=== PATIENT | male | born 1980 ===

== ENCOUNTER 2023-09-21 07:40 | Emergency (ER) | payer OTHER, SELFPAY ==
[2023-09-21] VITALS (30 sets, daily range): BP systolic 87–136; BP diastolic 50–75; PULSE 50–69; RESP 10–27; TEMP 33.8–36.2; O2SAT 89–100; BMI 30.8
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
--- NOTE | 2023-09-21 07:39 | DI.CT.S_ITS ---
This report includes an Addendum and supersedes previous reports for this exam. PROCEDURE: CT CHEST ABD PEL W CON INDICATIONS: Trauma TECHNIQUE: After the administration of intravenous contrast, 5 mm thick sections acquired from the lung apices to the symphysis. 2.5 mm thick coronal and sagittal reformats were acquired. Additional 7 mm thick coronal maximum intensity projection (MIP) reformats acquired through the lungs. Optional 10-minute delayed imaging may be performed from the kidneys to the bladder. For radiation dose reduction, the following was used: automated exposure control, adjustment of mA and/or kV according to patient size. COMPARISON: None. FINDINGS: Image quality: Good. CHEST: Lungs: Trace left pneumothorax. No right pneumothorax. Trace left hemothorax. Trace secretions in the trachea. Bilateral dependent ground-glass opacity which has the appearance of atelectasis. Mediastinum: No mediastinal hematomas. Heart size is normal. No pericardial effusion. Thoracic aorta and pulmonary arteries demonstrate normal size and enhancement. No mediastinal or hilar adenopathy. Esophagus is normal in caliber. No hiatal hernia. Chest wall: Left 1-5th rib fractures. Minimal displacement. Right 1st rib fracture. No sternal fracture. Trace left subcutaneous emphysema. No large hematoma. No axillary or supraclavicular adenopathy. Thyroid gland is unremarkable. ABDOMEN: Solid organs: Liver is normal in size. No liver laceration is identified. There is trace hemorrhage adjacent to the inferior margin of the right lobe of the liver, (). Gallbladder is unremarkable. Biliary system is non-dilated. Pancreas enhances normally, without transection. Spleen is normal in size and enhancement, without lacerations. Right adrenal nodule or hemorrhage measuring 2.4 cm, (64), 75 Hounsfield units. Minimal thickening of the left adrenal gland. Right kidney subcapsular hematoma measuring 8.1 cm in length and 2.5 cm in thickness, (/43). There is mass effect on the renal parenchyma. Possible renal laceration at the superior pole the right kidney. No hydronephrosis. A few small low-density renal cysts bilaterally. Peritoneum and bowel: No gross pneumoperitoneum. Fat stranding adjacent to the distal descending colon/sigmoid colon in the left lower quadrant, (104). Suspected contusion with surrounding hemorrhage. Diverticulosis. No small bowel obstruction. The appendix is normal. Nodes and vessels: No retroperitoneal or mesenteric adenopathy. Aorta and inferior vena cava are normal in size and enhancement. Miscellaneous: Tiny umbilical hernia. PELVIS: Genitourinary: Bladder is unremarkable. No fluid surrounding the bladder. No stone. Miscellaneous: No adenopathy. Possible fat containing left inguinal hernia. Bones: Questionable lucency at the left acetabulum, (15/159), which could represent nondisplaced fracture. Bilateral L4 pars defect with anterolisthesis of L4 on L5 measuring 0.8 cm. No paraspinal hematoma. Suspect chronic etiology. No acute spinal fracture identified. IMPRESSION: 1. Trace left pneumothorax and hemothorax. Left 1-5th rib fractures. Minimal to mild displacement. Suspect right 1st rib fracture. 2. No mediastinal hematoma. No aortic dissection. 3. Right kidney subcapsular hematoma measuring 8.1 cm. Concern for renal laceration at the superior pole the right kidney. 4. Trace hematoma at the right pericolic gutter adjacent to the liver. 5. Small hematoma/contusion at the left lower quadrant distal descending colon. No pneumoperitoneum. 6. Bilateral L4 pars defect with grade 1 anterolisthesis of L4 on L5. Suspect chronic etiology rather than acute fracture. No paraspinal hematoma. 7. Questionable lucency at the left acetabulum could represent nondisplaced fracture or artifact. Preliminary findings of right subcapsular hematoma and trace left pneumothorax, and left lower quadrant contusion were discussed with Dr. Sushil Leyva prior to dictation. Dictated by: Rufino Aguero M.D. on 09/21/2023 at 8:24 Approved by: Rufino Aguero M.D. on 09/21/2023 at 8:52 ADDENDUM: 8. Right adrenal hemorrhage or nodule measuring 2.4 cm. Dictated by: Rufino Aguero M.D. on 09/21/2023 at 9:26 Approved by: Rufino Aguero M.D. on 09/21/2023 at 9:27
--- NOTE | 2023-09-21 07:39 | DI.RAD.S_ITS ---
PROCEDURE: XR CHEST 1V INDICATIONS: trauma TECHNIQUE: One view of the chest was acquired. COMPARISON: None FINDINGS: Surgical changes and devices: None. Lungs and pleura: Left-sided rib fractures. Left-sided pulmonary infiltrate. Mediastinum: Mediastinal contours appear normal. Heart size is normal. Bones and chest wall: No suspicious bony lesions. Overlying soft tissues appear unremarkable. IMPRESSION: Left-sided rib fractures. Suspect pulmonary contusion. Dictated by: Gera Ward M.D. on 09/21/2023 at 8:28 Approved by: Gera Ward M.D. on 09/21/2023 at 8:34
--- NOTE | 2023-09-21 07:39 | DI.RAD.S_ITS ---
PROCEDURE: XR PELVIS 1-2V INDICATIONS: trauma TECHNIQUE: 1 view(s) of the pelvis acquired. COMPARISON: None. FINDINGS: Bones: No fractures or dislocations. No suspicious bony lesions. Soft tissues: Visualized bowel gas pattern is normal. No suspicious soft tissue calcifications. IMPRESSION: No displaced fracture. Dictated by: Nazario Grover M.D. on 09/21/2023 at 8:03 Approved by: Nazario Grover M.D. on 09/21/2023 at 8:03
--- NOTE | 2023-09-21 07:39 | DI.CT.S_ITS ---
PROCEDURE: CT CERVICAL SPINE WO CON INDICATIONS: Trauma TECHNIQUE: Noncontrast 3 mm thick sections acquired from the skull base to the T4 level. Sagittal and coronal reformats were then constructed. For radiation dose reduction, the following was used: automated exposure control, adjustment of mA and/or kV according to patient size. COMPARISON: None. FINDINGS: Image quality: Excellent. Bones: No fractures or dislocations. Mild to moderate degenerative changes in the cervical spine. Left 1st rib fracture is seen. Soft tissues: Prevertebral soft tissues are normal in thickness. No paravertebral hematomas. No apical pneumothoraces. IMPRESSION: No cervical spine fracture. Please see separately dictated same day CT chest, abdomen and pelvis. Dictated by: Rufino Aguero M.D. on 09/21/2023 at 8:52 Approved by: Rufino Aguero M.D. on 09/21/2023 at 8:55
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
[2023-09-21 07:57] LABS: Add Manual Diff / Slide Review NO; Basophils Absolute Auto 200 /uL (0-100); Basophils Percent Auto 1.4 % (0-2); Eosinophils Absolute Auto 100 /uL (0-450); Eosinophils Percent Auto 0.6 % (2-4); Hematocrit 47.4 % (41-53); Hemoglobin 16.3 g/dL (13.5-17.5); Lymphocytes Absolute Auto 2000 /uL (1100-4500); Mean Corpuscular HGB Conc 34.5 % (30-36); Mean Corpuscular Hemoglobin 31.6 PG (26-34); Mean Corpuscular Volume 91.8 fL (80-100); Monocytes Absolute Auto 800 /uL (0-900); Monocytes Percent Auto 5.2 % (3-14); Neutrophils Absolute Auto 12500 /uL (1500-7000); Neutrophils Percent Auto 79.8 % (50-75); Platelet Count 260 X10^3/uL (150-400); Red Blood Cell Count 5.17 X10^6/uL (4.5-5.9); White Blood Cell Count 15.6 X10^3/uL (4.5-11.0)
[2023-09-21 08:04] LABS: INR 1.1 (0.9-1.3); Prothrombin Time 12.1 SECONDS (10.1-12.7)
[2023-09-21 08:07] LABS: PTT Partial Thromboplastin Tim 26 SECONDS (26-36)
[2023-09-21 08:09] LABS: Lactate (Lactic Acid) 3.3 mmol/L (0.7-2.1)
[2023-09-21 08:11] LABS: Alanine Aminotransferase 183 IU/L (<50); Albumin 4.5 g/dL (3.5-5.0); Albumin Globulin Ratio 1.5 (1.0-2.8); Alkaline Phosphatase 80 U/L (38-126); Aspartate Aminotransferase 193 IU/L (17-59); BUN Creatinine Ratio 7.9 (6-22); Bilirubin Total 0.6 mg/dL (0.2-1.3); Blood Urea Nitrogen 10 mg/dL (9-20); Calcium 9.6 mg/dL (8.4-10.2); Carbon Dioxide 25 mmol/L (22-32); Chloride 104 mmol/L (98-107); Estimated Glomerular Filt Rate > 60 mL/min (>60); Ethanol (ETOH) < 10 mg/dL; Globulin 3.1 g/dL (1.7-4.1); Glucose 192 mg/dL (70-100); HEMOLYSIS < 15 (0-50); Lipase 732 U/L (23-300); Potassium 3.4 mmol/L (3.4-5.1); Sodium 137 mmol/L (137-145); Total Protein 7.6 g/dL (6.3-8.2)
[2023-09-21] MEDS: TET,DIPH,PERTUSS(ACELL),VAC/PF 0.5 ML SYRINGE IM (08:43)
[2023-09-21] MEDS: fentaNYL 100 MCG/2 ML INJ 50 MCG IV ×2 (08:55→10:11)
--- NOTE | 2023-09-21 09:02 | PC.NURSE ---
Pt's blood pressure dropped and heart rate decreased, provider aware and placed new orders for blood administration. See vitals documentation. Pt remains alert and oriented.
--- NOTE | 2023-09-21 09:34 | PC.NURSE ---
Pt placed on 2L O2 via NC
[2023-09-21 09:37] LABS: Creatine Kinase 1150 U/L (55-170)
--- NOTE | 2023-09-21 09:45 | PC.NURSE ---
Addendum entered by Vijaya Corona R.N. 09/21/23 09:48: Both units are being infused on fluid warmers Original Note: Pt doing well with RBC transfusion. No s/s of reaction
--- NOTE | 2023-09-21 09:46 | PC.NURSE ---
Reviewed with Dr. Leyva that we have 2 units PRBC bolusing in along with FFP being thawed for flight team to be infused
[2023-09-21 09:51] LABS: Troponin I 0.329 ng/mL (0.01-0.034)
[2023-09-21 09:52] LABS: Reflexed Lactate in 2 Hours Y
[2023-09-21 09:56] LABS: Ur Creatinine Normal (Normal); Ur Specific Gravity Normal (Normal); Urine pH Normal (Normal)
[2023-09-21 09:57] LABS: UR Morphine/Opiate cutoff 300 Negative (Negative); Urine Amphetamines Negative (Negative); Urine Barbiturates Negative (Negative); Urine Benzodiazepines Negative (Negative); Urine Cocaine Negative (Negative); Urine MDMA Negative (Negative); Urine Methadone Negative (Negative); Urine Methamphetamines Negative (Negative); Urine Oxycodone Negative (Negative); Urine Phencyclidine Negative (Negative); Urine Tetrahydrocannabinol Negative (Negative); Urine Tricyclic Antidepressant Negative (Negative)
--- NOTE | 2023-09-21 10:00 | PC.NURSE ---
[employer] leaving before FFP can be totally thawed. They will be infusing their own FFP
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
== END 2023-09-21 10:15 | disposition short-term general hospital (02) ==
PROVIDERS: Emergency Provider Emergency Medicine; Family Provider Family Medicine; PCP Family Medicine
DX: S06.5XAA Traumatic subdural hemorrhage with loss of consciousness status unknown, initial encounter (principal); S06.30AA Unspecified focal traumatic brain injury with loss of consciousness status unknown, initial encounter; J93.9 Pneumothorax, unspecified; S27.322A Contusion of lung, bilateral, initial encounter; S37.019A Minor contusion of unspecified kidney, initial encounter; V89.2XXA Person injured in unspecified motor-vehicle accident, traffic, initial encounter; Z23 Encounter for immunization
CPT/HCPCS: 36415; 36430; 70450; 71045; 71260; 72125; 72170; 74177; 80053; 80305; 80320; 81003; 82550; 82962; 83605; 83690; 84484; 85025; 85610; 85730; 86850; 86900; 86901; 86927; 90471; 93005; 93010; 96374; 96376; 99285; 99291; 99292; P9016; 90715; G0390; J3010; Q9967